=== PATIENT | male | born 1970 | race Caucasian/White ===

== ENCOUNTER 2024-05-24 07:15 | Outpatient (CLI) | payer BC, SELFPAY ==
--- NOTE | 2024-05-24 06:25 | SUR.PREOP ---
Patient relates he is having left posterior proximal calf discomfort which started approx 2 days ago, site very tender to any pressure/touch, mildly reddened. Has had increased immobility for the past 3 weeks d/t left knee injury. Denies any chest pain, SOB, difficulty breathing. Notified Dr Sykes who ordered a Venous Duplex U/S.
--- NOTE | 2024-05-24 06:32 | VDLE_ITS ---
Reason For Study Reason For Study: Left leg pain RIGHT LEFT CFV is compressible, spontaneous, phasic, competent GSV is normal. and demonstrates normal augmentation. CFV is compressible, spontaneous, phasic, competent, Procedure and demonstrates normal augmentation. This is a venous duplex using B-mode, color flow and FV is compressible, spontaneous, phasic, competent and spectral Doppler. demonstrates normal augmentation. Exam performed in department. POP V is compressible, spontaneous, phasic, competent A preliminary report was called and/or faxed to and demonstrates normal augmentation. Wong. T/P Trunk is compressible. PTV is compressible. LT PerV is compressible. Acute deep vein thrombosis is noted in the Gastrocnemius V. It is dilated and NONCOMPRESSIBLE. VL/Venous Duplex US, Unilateral Interpretation Summary Acute deep vein thrombosis is noted in the left gastrocnemius vein. Ordering Physician: Jean-Pierre Sykes Referring Physician: Franck Tian Performed By: Ernestine Murrell RVT
[2024-05-24 06:36] VITALS: BP 141/78; PULSE 92; RESP 16; TEMP 37.8; O2SAT 97; BMI 27.5
--- NOTE | 2024-05-24 07:25 | PCM.PN.ORT ---
Subjective Subjective patient having worsening calf pain, brought to the nurses attention this morning Objective Data Objective Data Vital Signs: Vital Signs Temp Pulse Resp BP Pulse Ox O2 Del Method 100.1 F H 92 16 141/78 H 97 Room Air 05/24/24 06:36 05/24/24 06:36 05/24/24 06:36 05/24/24 06:36 05/24/24 06:36 05/24/24 06:36 Oxygen Delivery Method Room Air Weight: 202 lb 13.204 oz Body Mass Index (BMI) 27.5 Assessment & Plan Assessment/Plan (1) Tear of lateral meniscus of left knee: PLAN: Pending stat DVT US, nurse ordered, for concern for DVT. will delay case at the moment. (2) Acute medial meniscus tear of left knee:
--- NOTE | 2024-05-24 07:30 | PCM.PRE.AN2 ---
ASA Classification* ASA Classification ASA Classification: 4 Assessment & Plan Anesthesia* Anesthesia Assessment Anesthesia Assessment: Discussed sedation and/or anesthesia options, risks, benefits, and alternatives with patient/parents/legal guardian/POA. Questions invited. The patient/parents/legal guardian/POA seems to understand and agrees to proceed with anesthesia plan. Reviewed the physical assessment, medical history, allergy history and patient home medications list prior to surgery/procedure/anesthetic and documented any changes. Performed airway and anesthesia risk assessments. Procedural Plan Procedural Plan:: NOT optimized for anesthesia (DVT found in Left calf by venous duplex on 05/24/24. Surgery Canceled.) Anesthesia Type Anesthesia Type: General History Source History Obtained from:: Patient and Chart Anesthesia Focused Assessment* Temperature: 100.1 F (Patient has had a cough. Recheck is 99.7F/ 99.5F) Pulse Rate: 92 Blood Pressure: 141/78 (patient states usually runs 150's over 95 ) Respiratory Rate: 16 Pulse Ox: 97 Oxygen Delivery Method: Room Air Airway Assessment Mouth opens: >3 cm Mallampati Score: II Teeth Condition: Chipped/Broken (Front bottom incisor chipped. ) Neck Range of motion (ROM): Full ROM Focused Labs Anesthesia Preop lab: CBC CHEMISTRY COAG Pre-Assessment Diagnosis/Proposed Procedure Planned Operative Procedure(s): LEFT KNEE ARTHROSCOPY MEDIAL LATERAL MENISCUS REPAIR POSS PARTIAL MENISECTOMY Anesthesia History Anesthesia History - data capture clerk: Anesthesia History - data capture clerk Hx Hospitalization No 05/23/24 12:01 Any Problems With Anesthesia No 05/23/24 12:01 Cholinesterase deficiency No 05/23/24 12:01 You/Your Family Experience No 05/23/24 12:01 fever (hyperthermia) with Relationship Recent Exposure to Contagious No 05/24/24 06:36 Disease Does patient have nerve No 05/23/24 12:01 stimulator Patient instructed to have device shut off --Does patient have Pacemaker No 05/24/24 06:36 or ICD? When Was Last Pacemaker Check QUESTION #4 FULL TEXT: You/Your Family Experience fever (hyperthermia) with Anesthesia Last Oral Intake Last Oral intake: Last Oral Intake NPO since 18:30 05/24/24 06:36 Meds taken in AM with sips of No 05/24/24 06:36 water? Meds patient instructed to take am of surgery PONV PONV - data capture clerk: PONV - data capture clerk Female No 05/23/24 12:01 HX of Motion Sickness No 05/23/24 12:01 HX of N/V After Surgery No 05/23/24 12:01 Non-Smoker Yes 05/23/24 12:01 Duration of Surgery greater Yes 05/23/24 12:01 than 60 minutes Number of Risk Factors 2 05/23/24 12:01 PONV Score Moderate Risk 05/23/24 12:01 Height & Weight Height & Weight: Anesthesia: Height & Weight Height 6 ft 05/24/24 06:36 Weight: 92 kg 05/24/24 06:36 Body Mass Index (BMI) 27.5 05/24/24 06:36 Respiratory Assessment Respiratory Assessment - data capture clerk: Respiratory Tract Infection Hx - data capture clerk Hx Respiratory Tract Infection No: HEAD COLD 05/23/24 12:01 STOP Sleep Apnea STOP Sleep Apnea - data capture clerk: STOP Sleep Apnea - data capture clerk Hx Hypertension Yes: CONTROLLED WITH MEDS 05/23/24 12:01 FOR MOST PART Hx Sleep Apnea No 05/23/24 12:01 CPAP BIPAP Do you snore loudly (louder Yes 05/23/24 12:01 than talking or can be heard Do you often feel tired/ No 05/23/24 12:01 fatigued/ sleepy during daytime? Has anyone observed you stop No 05/23/24 12:01 breathing during sleep? STOP Results Positive 05/23/24 12:01 QUESTION #5 FULL TEXT : Do you snore loudly (louder than talking or can be heard through closed doors)? Tobacco Use History Tobacco Use History - data capture clerk: Tobacco Use History - data capture clerk Tobacco Use Smoking Status Never smoker 05/23/24 12:01 Hx Tobacco Use No 05/23/24 12:01 Years Smoking Packs Smoked per Day Smoking Cessation Date was within the last 15 years Hx Smoking Cessation Date Hx Smoking Cessation Counseling Hematologic Medial History Hematologic Hx - data capture clerk: Hematologic Medical Hx - production leader Hx of Blood Transfusion No 05/23/24 12:01 Hx of Transfusion in last 3 No 05/23/24 12:01 Months Date of Last Transfusion (if within last 3 months) Ever experience any problems No 05/23/24 12:01 with transfusion(s)? Specify any problems Hx of Preganancy in last 3 N/A 05/23/24 12:01 Months Nurse Filling Out Transfusion DSCHRIBER 05/23/24 12:01 & Questions: Date: 05/23/24 05/23/24 12:01 Time: 12:03 05/23/24 12:01 Patient unable to answer at this time (ie. confused, unrespo /Reproduction History /Reproductive History - data capture clerk: /Reproductive Hx- data capture clerk Hx Now No 05/23/24 12:01 Gestational Age (in weeks): EDC: Hx Hx Para Hx Section SAB No 05/23/24 12:01 Active Medications Active Medications: Current Medications Generic Name Dose Route Start Last Admin Trade Name Freq PRN Reason Stop Dose Admin Cefazolin Sodium 2 gm/ N/A 20 mls @ 400 mls/hr 05/24/24 07:30 IV 05/24/24 07:32 PREOP ONE Sodium Chloride 1,000 mls @ 15 mls/hr 05/24/24 06:50 IV 05/27/24 01:29 .Q48H [facility] Protocol PFSH Medical History Wears glasses History of peritoneal dialysis History of renal disease High cholesterol Dietary restriction Non-smoker Leg cramps History of pain when walking History of edema Cardiology follow-up encounter History of echocardiogram History of stress test Hypertension Fracture of left tibial plateau Tear of lateral meniscus of left knee Acute medial meniscus tear of left knee Left knee pain Home Medications ?Medication ?Instructions ?Recorded ?Last Taken ?Type allopurinol 100 mg tablet 100 mg PO DAILY 05/12/24 05/23/24 History atorvastatin 80 mg tablet 80 mg PO QDAY 05/12/24 05/23/24 History gentamicin 0.3 % eye drops 1 - 2 drp ophthalmic (eye) QDAY 05/12/24 Unknown History PRN PORT losartan 25 mg tablet 25 mg PO DAILY 05/12/24 05/23/24 History nifedipine 90 mg tablet,extended 90 mg PO DAILY 05/12/24 05/23/24 History release vit B,C-folic ac 800 mcg-zinc 12.5 1 tab PO QDAY 05/12/24 05/23/24 History mg-selen-D3 2,000 unit-vit E tablet (RenaPlex-D) acetaminophen 325 mg tablet 650 mg PO Q4H PRN pain 05/24/24 05/23/24 History (Tylenol) Allergy/AdvReac Type Severity Reaction Status Date / Time No Known Allergies Allergy Verified 05/23/24 11:57 Family History Other Diabetes Hypertension Kidney disease Surgical History History of gastric surgery History of knee surgery Social History household members: spouse Smoking Status: Never smoker alcohol intake: never Addt'l Information Additional Findings: 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 Family HX Factor V leiden on moms side. Patient never tested for it. Review of Systems (Anesthesia) ROS Narrative System reviewed and no additional complaints, except as documented.
[2024-05-24 07:39] VITALS: BP 141/78; PULSE 92; RESP 16; O2SAT 97
[2024-05-24 07:44] VITALS: TEMP 37.8
--- NOTE | 2024-05-24 08:32 | SUR.PREOP ---
Dr Back notified patient he was positive for DVT on VDU. Awaiting Dr Sykes to come out of surgery to develop plan going forward.
--- NOTE | 2024-05-24 10:15 | SUR.PREOP ---
Dr Sykes spoke with patient and at length. Transported patient to E.R. for eval/treat new, acute DVT. Encouraged patient's to contact their career and transition teacher NATHALY so they can confer with E.R. doctor about treatment options d/t dialysis patient.
--- NOTE | 2024-05-24 10:21 | PCM.PN.ORT ---
Subjective Subjective frustrated. pending a kidney transplant. Objective Data Objective Data Vital Signs: Vital Signs Temp Pulse Resp BP Pulse Ox O2 Del Method 100.1 F H 92 16 141/78 H 97 Room Air 05/24/24 07:44 05/24/24 07:39 05/24/24 07:39 05/24/24 07:39 05/24/24 07:39 05/24/24 07:44 Oxygen Delivery Method Room Air Weight: 202 lb 13.204 oz Body Mass Index (BMI) 27.5 Assessment & Plan Assessment/Plan (1) Tear of lateral meniscus of left knee: PLAN: 53 yr old M, unfortunately we will have to go ahead and cancel his surgery for today due to the increased risks associated with an active untreated DVT. We have sent and asked the patient to be transported down to the emergency department for acute treatment. This is complicated by him being on dialysis and pending her kidney transplant as well. Typical length of treatment is 3 months but if we can treat this and perhaps do some bridging anticoagulation to then get his knee surgery done in the meantime before the 3 months time that would be more ideal as the patient does have a bucket-handle meniscus tear that is making it quite difficult to ambulate and bend and straighten his knee but that being said the more urgent and pressing issue right now is the blood clot the patient was frustrated but him and his do understand. (2) Acute medial meniscus tear of left knee:
== END 2024-05-24 20:00 | disposition home or self-care (01) ==
LOC: SDC 08-04 14:34
PROVIDERS: PCP Physician Assistant; Referring Provider Orthopaedic Surgery Sports Medicine; Visit Provider Orthopaedic Surgery Sports Medicine
DX: I82.462 Acute embolism and thrombosis of left calf muscular vein (principal); S83.282A Other tear of lateral meniscus, current injury, left knee, initial encounter; S83.242A Other tear of medial meniscus, current injury, left knee, initial encounter; Z99.2 Dependence on renal dialysis; S83.201A Bucket-handle tear of unspecified meniscus, current injury, left knee, initial encounter; Z53.09 Procedure and treatment not carried out because of other contraindication; E78.00 Pure hypercholesterolemia, unspecified; I10 Essential (primary) hypertension
CPT/HCPCS: 29883; 93971

== ENCOUNTER 2024-05-24 10:32 | Emergency (ER) | payer BC, SELFPAY ==
[2024-05-24 10:33] VITALS: BP 160/108; PULSE 87; RESP 16; TEMP 36.6; O2SAT 99; BMI 27.7
--- NOTE | 2024-05-24 11:37 | ED.VIS.LOWEX ---
HPI History of Present Illness HPI Narrative: Patient presents with left calf pain that began 2 days ago. Patient states he was scheduled for knee arthroscopy today. Patient states that when he came for his surgery, they ordered an ultrasound and found there was a DVT. Patient describes his pain as dull. Patient states it waxes and wanes. Patient denies any paresthesias or weakness. Patient denies any trauma or injury. Patient admits to a low-grade fever of 100.1 at home. Chief Complaint: Lower Extremity Injury Informant: patient Onset/Context/Timing Onset: Days (2) Context: Gradual Onset Timing: Waxes and wanes Quality of Pain: Dull Location: Left Proximal calf Worsened by: Nothing Relieved by: Nothing Associated Symptoms Associated Symptoms: Negative for Parasthesia, Weakness or Loss of Funtion [facility] Medical History Wears glasses History of peritoneal dialysis History of renal disease High cholesterol Dietary restriction Non-smoker Leg cramps History of pain when walking History of edema Cardiology follow-up encounter History of echocardiogram History of stress test Hypertension Fracture of left tibial plateau Tear of lateral meniscus of left knee Acute medial meniscus tear of left knee Left knee pain Home Medications ?Medication ?Instructions ?Recorded ?Last Taken ?Type allopurinol 100 mg tablet 100 mg PO DAILY 05/12/24 05/23/24 History atorvastatin 80 mg tablet 80 mg PO QDAY 05/12/24 05/23/24 History gentamicin 0.3 % eye drops 1 - 2 drp ophthalmic (eye) QDAY 05/12/24 Unknown History PRN PORT losartan 25 mg tablet 25 mg PO DAILY 05/12/24 05/23/24 History nifedipine 90 mg tablet,extended 90 mg PO DAILY 05/12/24 05/23/24 History release vit B,C-folic ac 800 mcg-zinc 12.5 1 tab PO QDAY 05/12/24 05/23/24 History mg-selen-D3 2,000 unit-vit E tablet (RenaPlex-D) acetaminophen 325 mg tablet 650 mg PO Q4H PRN pain 05/24/24 05/23/24 History (Tylenol) apixaban 5 mg tablet (Eliquis) 5 mg PO BID #74 tabs 05/24/24 Unknown Rx Allergy/AdvReac Type Severity Reaction Status Date / Time No Known Allergies Allergy Verified 05/23/24 11:57 Family History Other Diabetes Hypertension Kidney disease Surgical History History of gastric surgery History of knee surgery Social History household members: spouse Smoking Status: Never smoker alcohol intake: never ROS ROS ED Constitutional Constitutional ED: Reports fever(s); Denies chills Eyes Eyes: Denies blurry vision or change in vision ENT ENT ED: Denies rhinorrhea or sore throat Cardiovascular Cardiovascular: Denies chest pain or palpitations Respiratory/Chest Respiratory/Chest: Denies cough or dyspnea Gastrointestinal Gastrointestinal: Denies nausea or vomiting Genitourinary Genitourinary ED: Denies dysuria or hematuria Musculoskeletal Musculoskeletal: Denies back pain or neck pain Integumentary Denies abscess or rash Neurologic Neurologic: Denies headache(s) or weakness Allergic/Immunologic Allergic/Immunologic ED: Denies mouth swelling or urticaria EXAM Physical Exam Const Vital Signs: 05/24/24 10:33 Temperature 97.9 F Temperature Source Temporal Pulse Rate 87 Respiratory Rate 16 Blood Pressure 160/108 H Blood Pressure Mean 125 Pulse Ox 99 Oxygen Delivery Method Room Air Positive well nourished and well developed General Appearance ED: well developed and NAD HEENT Reports moist mucous membranes Neck full ROM and supple Extremity Extremity Narrative: There is tenderness over the proximal left calf posteriorly. There is no edema noted. There is no bony crepitance or step-off. Pedal pulses are equal bilaterally. There was limited range of motion of the left knee due to the meniscus injury. Drink was 5/5 bilaterally in the lower extremities. There are no sensory deficits noted. Neuro oriented x3, CN's II-XII intact bilaterally, moves all extremities and no sensory deficits noted Sensorium / Orientation: alert Motor Exam: strength 5/5 throughout Psych mental status grossly normal MDM MDM MDM Narrative Medical decision making narrative: Patient had venous duplex ultrasound prior to arrival which showed a DVT in the left gastrocnemius vein. Patient was given a dose of Eliquis here. Patient was given a prescription for Eliquis. Patient was instructed to follow-up with his primary care physician in 3 to 5 days. Patient was instructed to return if worse in any way. Patient understood and was agreeable with the plan. All questions were answered. Discharge Plan Triage Chief Complaint: Lower Extremity Injury ED Provider: Davon Goncalves Dx/Rx/DC Orders Clinical Impression: Acute deep vein thrombosis (DVT) of calf muscle vein of left lower extremity, Renal failure Instructions: ED Deep Vein Thrombosis (DVT) Prescriptions: New Eliquis 5 mg tablet 5 mg PO BID Qty: 74 0RF Rx Instructions: 10 mg twice a day for the first week. Then 5 mg twice a day. No Action losartan 25 mg tablet 25 mg PO DAILY gentamicin 0.3 % drops 1 - 2 drp ophthalmic (eye) QDAY PRN (Reason: PORT) allopurinol 100 mg tablet 100 mg PO DAILY RenaPlex-D 800 mcg-12.5 mg -2,000 unit tablet 1 tab PO QDAY atorvastatin 80 mg tablet 80 mg PO QDAY nifedipine 90 mg tablet extended release 90 mg PO DAILY acetaminophen [Tylenol] 325 mg tablet 650 mg PO Q4H PRN (Reason: pain) Primary Care Provider: Franck Tian Referrals: Franck Tian PA-C [Primary Care Provider] - 3-5 Days Print Language: Swedish Disposition Disposition: Home, Self Care
[2024-05-24] MEDS: APIXABAN 5 MG TABLET 10 MG PO (12:07)
== END 2024-05-24 12:14 | disposition home or self-care (01) ==
LOC: ED 12:04
PROVIDERS: Emergency Provider Emergency Medicine; PCP Physician Assistant; Visit Provider Emergency Medicine
DX: I82.462 Acute embolism and thrombosis of left calf muscular vein (principal); E78.00 Pure hypercholesterolemia, unspecified; I10 Essential (primary) hypertension; N19 Unspecified kidney failure; Z79.899 Other long term (current) drug therapy; Z79.01 Long term (current) use of anticoagulants
CPT/HCPCS: 99282